=== PATIENT | female | born 1975 | race Caucasian/White ===

== ENCOUNTER → 2018-07-09 12:57 | Outpatient (CLI) | payer BC, SELFPAY ==
--- NOTE | 2018-07-09 13:03 | BI_ITS ---
MAMMOGRAPHY - BILATERAL DIAGNOSTIC REASON FOR EXAM: Female, 43 years old. 2 week history of right breast lump. PERTINENT HISTORY: Aunt with breast cancer. Remote bilateral excisional breast biopsies. TECHNIQUE: Digital bilateral breast peterson (3D mammographic acquisition) in the CC and MLO projections. 2-D mediolateral oblique (MLO) and craniocaudad (CC) views of both breasts were obtained. CAD: Full Field Digital Mammography with Computer Added Detection was performed. COMPARISON: None. Baseline examination. FINDINGS: Breast Composition: The breasts are extremely dense, which lowers the sensitivity of mammography. There is a 1.2 cm x 1.3 cm well-defined nodule in the upper lateral portion of the left breast. A tiny calcification is seen within it. Correlation with ultrasound is recommended. No other significant abnormalities are identified. BI/DIAG MAMM W/CAD, BILAT IMPRESSION: 1.2 cm x 1.3 cm well-defined nodule in the upper lateral portion of the left breast. With the patient's history of a palpable abnormality in the right breast, correlation with bilateral breast sonograms is recommended. ASSESSMENT CATEGORY: BIRADS Category 0: Incomplete. Need additional imaging evaluation. A letter regarding these results will be sent to the patient by the facility within 30 days. Approximately 10% of breast cancers are not detected by mammography. A normal mammogram should not delay biopsy of a clinically suspicious abnormality. Electronically Signed: Kash Casillas MD at 15:49 EDT Tel [phone], Service support ,
--- NOTE | 2018-07-09 13:05 | US_ITS ---
STUDY: ULTRASOUND BREAST - RIGHT REASON FOR EXAM: Female, 43 years old. Palpable lump in the right breast. TECHNIQUE: Axial and longitudinal images of the RIGHT breast were performed with a high resolution ultrasound transducer. COMPARISON: Comparison is made with prior mammogram done earlier in the day. FINDINGS: RIGHT Breast: There is a 1.7 cm x 1.5 cm x 1.2 cm cyst at the 1:00 position of the breast at 3 cm from the nipple. US/Breast Limited Unilateral IMPRESSION: The palpable abnormality corresponds to a 1.7 cm x 1.5 cm x 1.2 cm cyst at the 1:00 position of the breast at 3 cm from the nipple ASSESSMENT CATEGORY: BIRADS Category 2: Benign. A letter regarding these results will be sent to the patient by the facility within 30 days. Electronically Signed: Kash Casillas MD at 15:22 EDT Tel [phone], Service support ,
== END ==
DX: N63.10 Unspecified lump in the right breast, unspecified quadrant (principal)
CPT/HCPCS: 76642; 77062; 77066; G0279

== ENCOUNTER → 2018-07-12 14:07 | Outpatient (CLI) | payer BC, SELFPAY ==
--- NOTE | 2018-07-12 14:10 | US_ITS ---
STUDY: ULTRASOUND BREAST - LEFT REASON FOR EXAM: Female, 43 years old. Abnormal screening mammogram. TECHNIQUE: Axial and longitudinal images of the LEFT breast were performed with a high resolution ultrasound transducer. COMPARISON: Comparison is made with prior mammogram dated July 09, 2018. FINDINGS: LEFT Breast: 3 cysts are seen in the upper outer quadrant of the left breast. The largest cyst measures 1.8 cm x 1.8 cm x 0.8 cm. This is at the 2:00 position breast at 2 cm from the nipple. US/Breast Limited Unilateral IMPRESSION: 3 cysts are seen in the upper outer quadrant of the left breast. Routine annual mammographic follow-up is recommended. ASSESSMENT CATEGORY: BIRADS Category 2: Benign. A letter regarding these results will be sent to the patient by the facility within 30 days. Electronically Signed: Kash Casillas MD at 15:17 EDT Tel [phone], Service support ,
== END ==
DX: R92.8 Other abnormal and inconclusive findings on diagnostic imaging of breast (principal)
CPT/HCPCS: 76642

== ENCOUNTER → 2021-08-04 14:29 | Outpatient (CLI) | payer BC, SELFPAY ==
--- NOTE | 2021-08-04 15:03 | BI_ITS ---
MAMMOGRAPHY - BILATERAL SCREENING REASON FOR EXAM: Female, 46 years old. Routine annual screening examination. PERTINENT HISTORY: Aunts with breast cancer. Prior right and left excisional breast biopsy. TECHNIQUE: Digital bilateral breast osbaldo (3D mammographic acquisition) in the CC and MLO projections. 2-D mediolateral oblique (MLO) and craniocaudad (CC) views of both breasts were obtained. CAD: Full Field Digital Mammography with Computer Added Detection was performed. COMPARISON: Comparison is made with prior study dated 07/09/2018. FINDINGS: Breast Composition: The breasts are extremely dense, which lowers the sensitivity of mammography. Stable 1.2 cm x 1.2 cm well-defined nodule in the upper lateral portion of the breast. 2 punctate calcifications are seen within the suggestive of a calcifying fibroadenoma. No other significant abnormalities are identified. BI/SCRN MAMM (CAD)W/OSBALDO BILAT IMPRESSION: Stable bilateral screening mammogram. Yearly follow-up mammogram recommended. (A) ASSESSMENT CATEGORY: BIRADS Category 2: Benign. A letter regarding these results will be sent to the patient by the facility within 30 days. Approximately 10% of breast cancers are not detected by mammography. A normal mammogram should not delay biopsy of a clinically suspicious abnormality. [id number] Electronically Signed: Kash Casillas MD at 8:15 EST , Service support ,
== END ==
DX: Z12.31 Encounter for screening mammogram for malignant neoplasm of breast (principal); Z80.3 Family history of malignant neoplasm of breast
CPT/HCPCS: 77063; 77067

== ENCOUNTER → 2023-02-20 | Outpatient (CLI) | payer BC, SELFPAY ==
--- NOTE | 2023-02-20 13:34 | BI_ITS ---
MAMMOGRAPHY - BILATERAL SCREENING REASON FOR EXAM: Female, 48 years old. Routine annual screening examination. PERTINENT HISTORY: Aunts with breast cancer. Remote bilateral excisional breast biopsies. TECHNIQUE: Digital bilateral breast osbaldo (3D mammographic acquisition) in the CC and MLO projections. 2-D mediolateral oblique (MLO) and craniocaudad (CC) views of both breasts were obtained. CAD: Full Field Digital Mammography with Computer Added Detection was performed. COMPARISON: Comparison is made with prior study dated August 04, 2021 and July 09, 2018. FINDINGS: Breast Composition: The breasts are extremely dense, which lowers the sensitivity of mammography. Stable 1.2 cm well-defined nodule in the upper lateral portion of the left breast. Faint calcifications are seen within. This is suggestive of a fibroadenoma. No other significant abnormalities are identified. There has been no significant change since the prior study. BI/SCRN MAMM (CAD)W/OSBALDO BILAT IMPRESSION: Stable bilateral screening mammogram. Yearly follow-up mammogram recommended. (A) ASSESSMENT CATEGORY: BIRADS Category 2: Benign. A letter regarding these results will be sent to the patient by the facility within 30 days. Approximately 10% of breast cancers are not detected by mammography. A normal mammogram should not delay biopsy of a clinically suspicious abnormality. [id number] Electronically Signed: Kash Casillas MD at 14:31 EDT ,
== END | disposition home or self-care (01) ==
PROVIDERS: Referring Provider Nurse Practitioner Women's Health; Visit Provider Nurse Practitioner Women's Health
DX: Z12.31 Encounter for screening mammogram for malignant neoplasm of breast (principal)
CPT/HCPCS: 77063; 77067

== ENCOUNTER 2024-08-07 08:28 | Day surgery (SDC) | payer BC, SELFPAY ==
--- NOTE | 2024-08-07 08:48 | PRE.ANES_ITS ---
ASA Classification* ASA Classification ASA Classification: 2 Assessment & Plan Anesthesia* Anesthesia Assessment Anesthesia Assessment: Discussed sedation and/or anesthesia options, risks, benefits, and alternatives with patient/parents/legal guardian/POA. Questions invited. The patient/parents/legal guardian/POA seems to understand and agrees to proceed with anesthesia plan. Reviewed the physical assessment, medical history, allergy history and patient home medications list prior to surgery/procedure/anesthetic and documented any changes. Performed airway and anesthesia risk assessments. 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 When Was Last Pacemaker Check QUESTION #4 FULL TEXT: You/Your Family Experience fever (hyperthermia) with Anesthesia Last Oral Intake Last Oral intake: Last Oral Intake NPO since Meds taken in AM with sips of water? Meds patient instructed to take am of surgery PONV PONV - jewish thought professor: PONV - jewish thought professor Female Yes 08/05/24 13:40 HX of Motion Sickness No 08/05/24 13:40 HX of N/V After Surgery No 08/05/24 13:40 Non-Smoker Yes 08/05/24 13:40 Duration of Surgery greater No 08/05/24 13:40 than 60 minutes Number of Risk Factors 2 08/05/24 13:40 PONV Score Moderate Risk 08/05/24 13:40 Height & Weight Height & Weight: Anesthesia: Height & Weight Height 5 ft 4 in 06/16/24 11:31 Respiratory Assessment Respiratory Assessment - jewish thought professor: Respiratory Tract Infection Hx - jewish thought professor Hx Respiratory Tract Infection No 08/05/24 13:40 STOP Sleep Apnea STOP Sleep Apnea - jewish thought professor: STOP Sleep Apnea - jewish thought professor Hx Hypertension No 08/05/24 13:40 Hx Sleep Apnea No 08/05/24 13:40 CPAP BIPAP Do you snore loudly (louder No 08/05/24 13:40 than talking or can be heard Do you often feel tired/ No 08/05/24 13:40 fatigued/ sleepy during daytime? Has anyone observed you stop No 08/05/24 13:40 breathing during sleep? STOP Results Negative 08/05/24 13:40 QUESTION #5 FULL TEXT : Do you snore loudly (louder than talking or can be heard through closed doors)? 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 Specify any problems Hx of Preganancy in last 3 No 08/05/24 13:40 Months Nurse Filling Out Transfusion VCHRISTIN 08/05/24 13:40 & Questions: Date: 08/05/24 08/05/24 13:40 Time: 13:41 08/05/24 13:40 Patient unable to answer at this time (ie. confused, unrespo /Reproduction History /Reproductive History - jewish thought professor: /Reproductive Hx- jewish thought professor Hx Now Gestational Age (in weeks): EDC: Hx Hx Para Hx Section SAB PFSH Medical History Post-menopausal Back pain Cardiology follow-up encounter History of irregular heartbeat Home Medications ?Medication ?Instructions ?Recorded ?Last Taken ?Type acetylcysteine 600 mg capsule (NAC) 600 mg PO QDAY 06/16/24 08/02/24 History Allergy/AdvReac Type Severity Reaction Status Date / Time No Known Allergies Allergy Verified 08/05/24 13:32 Surgical History History of lumpectomy of right breast History of lumpectomy of left breast Social History household members: spouse current occupational status: employed 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
[2024-08-07 08:50] VITALS: BP 138/98; PULSE 88; RESP 16; TEMP 36.7; O2SAT 99; BMI 32.8
--- NOTE | 2024-08-07 09:04 | PCM.HP.STD ---
[facility] - General General Date of Admission: 08/07/24 Date of Service: 08/07/24 Chief Complaint: Screening colonoscopy HPI Narrative DARRYN GAMBOA, is a 49 F who presents today for screening colonoscopy. She has not had a colonoscopy in the past. She does not take any medicines on a daily basis. She has no abdominal pain, cramping, chest pain or shortness of breath. Overall she is in very good health. 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 Smoking Status: Never smoker substance use type: does not use ROS Review of Systems ROS Unobtainable: other Constitutional Constitutional: Denies fatigue, fever(s), poor appetite, weight gain or weight loss ENT HEENT: Denies mouth lesions Cardiovascular Cardiovascular: Denies abdominal bloating, abdominal edema or abdominal pain Respiratory/Chest Respiratory/Chest: Denies change in mental status, change in phlegm color, chest congestion or chest tightness Gastrointestinal Gastrointestinal: Denies belching, bloating, change in bowel habits, change in stool character, chewing difficulty, coffee ground emesis, constipation, cramping, diarrhea, dyspepsia, dysphagia, early satiety, excessive flatus, fecal incontinence, heartburn, hematemesis, hematochezia, hemorrhoids, loose stools, melena, nausea, odynophagia, rectal bleeding, tenesmus, vomiting or weight changes Genitourinary Genitourinary: Denies abdominal discomfort, burning urination or itching Musculoskeletal Musculoskeletal: Reports as per HPI; Denies muscle weakness or myalgias Integumentary Integumentary: Denies jaundice Neurologic Neurologic: Denies lack of coordination or weakness Psychiatric Psychiatric: Denies confusion, depression, memory loss, mood swings, paranoia or suicidal ideation Endocrine Endocrinology: Denies systems reviewed and no addt'l complaints, except as documented Hematologic/Lymphatic Hematologic/Lymphatic: Denies anemia, easy bleeding, easy bruising or lymphadenopathy Allergic/Immunologic Allergic/Immunologic: Denies systems reviewed and no addt'l complaints, except as documented Vital Signs Vital Signs Vital Signs: 08/07/24 08:50 08/07/24 08:50 Temperature 98.1 F Temperature Source Temporal Pulse Rate 88 Respiratory Rate 16 Respiratory Pattern Normal Blood Pressure 138/98 H Blood Pressure Mean 111 Blood Pressure Source Monitor Blood Pressure Position Semi-Fowlers Blood Pressure Location Left Arm Pulse Ox 99 Oxygen Delivery Method Room Air Weight Weight: 190 lb 14.725 oz Body Mass Index (BMI) 32.8 Physical Exam Const alert General Appearance: cooperative Orientation / Consciousness: oriented to person HEENT hearing grossly normal bilaterally Head and Scalp: normal to inspection Face and Sinus: face symmetric Nose: external nose normal Mouth: oral and palatal mucosa normal Eyes conjunctivae normal General Eye: normal appearance of both eyes Neck full ROM General: normal visual inspection Lymph Lymphatic: no lymphadenopathy noted Chest inspection of chest normal and palpation of chest normal Chest: symmetrical chest wall rise Resp normal respiratory effort Effort and Inspection: able to speak in complete sentences Cardio regular rate GI non-distended Percussion: normal to percussion Rectal Exam: deferred Neuro Speech: speech normal Gait (Neuro): normal gait Assessment & Plan Assessment/Plan (1) Encounter for screening for malignant neoplasm of colon: PLAN: She was explained alternatives, risk and benefits including not withstanding bleeding, infection, infection, sepsis, perforation, need for emergent urgent . She have an ASA of 3.
--- NOTE | 2024-08-07 09:45 | PCM.POST.ANE ---
Anesthesia: Postop Eval I Current Vital Signs Temperature: 97.1 F Pulse Rate: 71 Blood Pressure: 127/90 Respiratory Rate: 16 Pulse Ox: 98 Oxygen Delivery Method: Room Air Assessment Airway patent: Yes Spontaneous unlabored respirations: Yes nausea: No Vomiting: No Anesthesia Complication: No Fluid Hydration Crystalloid volume administer (ml): 5 Total IV fluid infused: 5 Progress Note Anesthesia document: Postop Eval 1 completed: Yes
--- NOTE | 2024-08-07 10:27 | OP.COLON_ITS ---
Patient Name: Genna Vergara Procedure Date: 08/07/2024 9:59 AM Date of : 1975 Age: 49 Procedure: Colonoscopy Indications: Screening for colorectal malignant neoplasm Providers: Tony Russ DO Referring MD: Luis Miguel Jean Baptiste Do Medicines: Monitored Anesthesia Care Patient Profile: This is a 49 year old female. Refer to note in patient chart for documentation of history and physical. Last Colonoscopy: none. The patient's first colonoscopy is today. Complications: No immediate complications. Procedure: Pre-Anesthesia Assessment: - Prior to the procedure, a History and Physical was performed, and patient medications and allergies were reviewed. The patient is competent. The risks and benefits of the procedure and the sedation options and risks were discussed with the patient. All questions were answered and informed consent was obtained. Patient identification and proposed procedure were verified by the physician in the pre-procedure area. Mental Status Examination: alert and oriented. Airway Examination: normal oropharyngeal airway and neck mobility. Respiratory Examination: clear to auscultation. CV Examination: normal. Prophylactic Antibiotics: The patient does not require prophylactic antibiotics. Prior Anticoagulants: The patient has taken no anticoagulant or antiplatelet agents except for NSAID medication. ASA Grade Assessment: II - A patient with mild systemic disease. After reviewing the risks and benefits, the patient was deemed in satisfactory condition to undergo the procedure. The anesthesia plan was to use monitored anesthesia care (MAC). Immediately prior to administration of medications, the patient was re-assessed for adequacy to receive sedatives. The heart rate, respiratory rate, oxygen saturations, blood pressure, adequacy of pulmonary ventilation, and response to care were monitored throughout the procedure. The physical status of the patient was re-assessed after the procedure. After I obtained informed consent, the scope was passed under direct vision. Throughout the procedure, the patient's blood pressure, pulse, and oxygen saturations were monitored continuously. The Colonoscope was introduced through the anus and advanced to the cecum, identified by appendiceal orifice and ileocecal valve. The colonoscopy was performed without difficulty. The patient tolerated the procedure well. The quality of the bowel preparation was adequate. The ileocecal valve, appendiceal orifice, and rectum were photographed. Scope In: 10:09:05 AM Scope Withdrawal Time 0 hours 7 minutes 47 seconds Scope Out: 10:24:51 AM Total Procedure Duration Time 0 hours 15 minutes 46 seconds Findings: The perianal and digital rectal examinations were normal. The colon (entire examined portion) appeared normal. No additional abnormalities were found on retroflexion. Impression: - The entire examined colon is normal. - No specimens collected. Recommendation: - Discharge patient to home. - Resume previous diet. - Continue present medications. - Repeat colonoscopy in 10 years for screening purposes. Procedure Code(s): --- Professional --- G0121, Colorectal cancer screening; colonoscopy on individual not meeting criteria for high risk CPT copyright 2021 [employer]. All rights reserved. The codes documented in this report are preliminary and upon insurance coder review may be revised to meet current compliance requirements. Tony Russ DO 08/07/2024 10:27:03 AM This report has been signed electronically. Number of Addenda: 0 Note Initiated On: 08/07/2024 9:59 AM
--- NOTE | 2024-08-07 10:27 | OP.CCLET_ITS ---
08/07/2024 Luis Miguel Jean Baptiste, Re : Colonoscopy procedure for Genna Vergara Dear Dr. Jean Baptiste This procedure was performed on July. My impressions and recommendations are as follows: Impressions : - The entire examined colon is normal. - No specimens collected. Recommendations : - Discharge patient to home. - Resume previous diet. - Continue present medications. - Repeat colonoscopy in 10 years for screening purposes. My findings are described in the full procedure note, which is enclosed. If I can be of further assistance, please feel free to contact me at . Sincerely, Tony Russ, 08/07/2024 10:27:03 AM This report has been signed electronically.
[2024-08-07 10:28] VITALS: BP 120/83; BP 138/98; PULSE 69; RESP 16; TEMP 36.4; O2SAT 97
[2024-08-07 10:30] VITALS: BP 118/86; BP 138/98; PULSE 71; RESP 16; O2SAT 97
[2024-08-07 10:35] VITALS: BP 120/91; BP 138/98; PULSE 72; RESP 16; O2SAT 97
[2024-08-07 10:40] VITALS: BP 127/90; BP 138/98; PULSE 71; RESP 16; TEMP 36.2; O2SAT 98
[2024-08-07 10:53] VITALS: BP 138/98
--- NOTE | 2024-08-07 15:20 | PCM.POSTANE2 ---
Anesthesia Postop Eval I Sum Anesthesia Postop Eval I Summary Anesthesia Postop Eval I Summary: Anesthesia Postop Eval I: Assessment Summary Airway patent Spontaneous unlabored respirations Mental status nausea Vomiting Anesthesia Postop Eval I: Fluid Summary Crystalloid volume administer (ml) Colloids volume administered ( ml) Blood Product volume administered (ml) Total IV fluid infused Anesthesia Postop Eval I: Summary Notes Anesthesia Complication Anesthesia Complication Comment: Post-operative progress note Anesthesia: Postop Eval II Evaluation Mental status: Awake and Calm Pain Level: 0 nausea: No Vomiting: No Complications Anesthesia Complication: No
[2024-08-08 09:13] VITALS: BP 127/90; PULSE 71; RESP 16; TEMP 36.2; O2SAT 98
== END 2024-08-07 10:59 | disposition home or self-care (01) ==
LOC: EN 08:32 → AC 08:33
PROVIDERS: PCP Family Medicine; Referring Provider Family Medicine; Visit Provider Internal Medicine Gastroenterology
PROC: 0DJD8ZZ Inspection of Lower Intestinal Tract, Via Natural or Artificial Opening Endoscopic (ICD-10-PCS; CPT 45378; principal; 2024-08-07 09:40)
DX: Z12.11 Encounter for screening for malignant neoplasm of colon (principal)
CPT/HCPCS: 45378; A4216; J2405